=== PATIENT | male | born 1965 | race Caucasian/White ===

== ENCOUNTER 2017-12-15 17:26 | Emergency (ER) | payer MEDICAID ==
[~2017-12-15] VITALS: Ht 172.7 cm; Wt 70.5 kg
[2017-12-15 17:40] VITALS: Ht 172.7 cm; Wt 70.5 kg
[2017-12-15 18:28] LABS: BASOPHILS 0.2 % (0-2); EOSINOPHILS 1.4 % (0-7); HEMATOCRIT 40.9 % (42.0-54.0); IMMATURE GRANULOCYTES 0.1 % (0-5); MCH 33.3 pg (26.0-34.0); MCHC 36.7 g/dL (31.0-37.0); MCV 90.7 fL (80.0-100.0); MEAN PLATELET VOLUME 10.8 fL (7.4-10.4); MONOCYTES 6.6 % (2-11); NEUTROPHILS 60.7 % (40-80); PLATELET COUNT 169 10x3/uL (130-400); RBC 4.51 10x6/uL (4.20-6.10); RDW 14.2 % (11.5-14.5); WBC 8.5 10x3/uL (4.8-10.8)
[2017-12-15 18:38] LABS: APTT 32.2 SECONDS (22.8-39.4); INR 1.03 (0.85-1.17); PROTIME 13.1 SECONDS (11.6-15.0)
[2017-12-15 18:39] LABS: D-DIMER-QUANTITATIVE 0.38 ug/mLFEU (0.20-0.54)
[2017-12-15 18:39] LABS: APPEARANCE CLEAR (CLEAR); BILIRUBIN NEGATIVE (NEGATIVE); COLOR YELLOW (YELLOW); GLUCOSE NEGATIVE (NEGATIVE); KETONE NEGATIVE (NEGATIVE); NITRITE NEGATIVE (NEGATIVE); PROTEIN NEGATIVE (NEGATIVE); UROBILINOGEN NORMAL (NORMAL)
[2017-12-15 18:45] LABS: ALBUMIN 3.8 g/dL (3.4-5.0); ALKALINE PHOSPHATASE 78 U/L (46-116); ALT (SGPT) 24 U/L (10-68); BILIRUBIN - TOTAL 0.42 mg/dL (0.2-1.3); CALC OSMOLALITY 273 mosm/kg (275-300); CALCIUM 8.7 mg/dL (8.5-10.1); CARBON DIOXIDE 28.8 mmol/L (21.0-32.0); CHLORIDE - SERUM 101 mmol/L (98-107); CREATININE - SERUM 1.1 mg/dL (0.6-1.3); GLUCOSE 107 mg/dL (74-106); POTASSIUM - SERUM 3.4 mmol/L (3.5-5.1); PROTEIN - SERUM 7.2 g/dL (6.4-8.2); SODIUM 138 mmol/L (136-145); UREA NITROGEN 6 mg/dL (7-18); eGFR NON AFRICAN AMERICAN 74 mL/min (90-120)
[2017-12-15 18:56] LABS: CKMB 4.3 U/L (0.0-3.6); CREATINE KINASE 335 UL (21-232); MAGNESIUM - SERUM 1.7 mg/dL (1.8-2.4)
[2017-12-15 19:18] LABS: TROPONIN-I < 0.017 ng/mL (0.000-0.060)
[2017-12-15 21:37] LABS: CKMB 3.8 U/L (0.0-3.6); CREATINE KINASE 305 UL (21-232)
[2017-12-15 21:46] LABS: TROPONIN-I < 0.017 ng/mL (0.000-0.060)
[2017-12-15] MEDS ORDERED: MEDROL DOSE PACK4 MG PO (22:08)
[2017-12-15] MEDS ORDERED: EC-NAPROSYN500 MG PO (22:08)
[2017-12-15 22:22] VITALS: BP 170/91
== END 2017-12-15 22:26 | disposition home or self-care (01) ==
LOC: D.ER 17:26
PROVIDERS: Family Medicine
DX: F41.9 Anxiety disorder, unspecified (principal); M19.90 Unspecified osteoarthritis, unspecified site; R07.9 Chest pain, unspecified; Z86.73 Personal history of transient ischemic attack (TIA), and cerebral infarction without residual deficits; I10 Essential (primary) hypertension; K21.9 Gastro-esophageal reflux disease without esophagitis; F17.200 Nicotine dependence, unspecified, uncomplicated

== ENCOUNTER 2018-01-07 08:12 | Emergency (ER) | payer MEDICAID ==
[~2018-01-07] VITALS: Ht 172.7 cm; Wt 59.1 kg
[~2018-01-07 08:12] MED LIST: EC-NAPROSYN500 MG PO; MEDROL DOSE PACK4 MG PO
[2018-01-07 08:29] VITALS: BP 140/85; Ht 172.7 cm; Wt 59.1 kg
[2018-01-07] MEDS ORDERED: FLAGYL500 MG PO (08:34)
[2018-01-07] MEDS ORDERED: OMEPRAZOLE20 M1 PO (08:35)
[2018-01-07] MEDS ORDERED: SEROQUEL50 MG PO (08:35)
[2018-01-07] MEDS ORDERED: METOPROLOL TART25 MG PO (08:36)
[2018-01-07] MEDS ORDERED: CELEXA20 MG PO (08:36)
[2018-01-07] MEDS ORDERED: HYDROCHLOROTHIA25 MG PO (08:37)
[2018-01-07] MEDS ORDERED: VENTOLIN HFA18 GM INH (08:37)
[2018-01-07 08:56] LABS: HEMATOCRIT 35.6 % (42.0-54.0); HEMOGLOBIN 12.8 g/dL (13.5-17.5); MCH 32.5 pg (26.0-34.0); MCV 90.4 fL (80.0-100.0); MEAN PLATELET VOLUME 10.1 fL (7.4-10.4); PLATELET COUNT 426 10x3/uL (130-400); RBC 3.94 10x6/uL (4.20-6.10); RDW 14.9 % (11.5-14.5); WBC 23.8 10x3/uL (4.8-10.8)
[2018-01-07 09:08] LABS: ALBUMIN 3.1 g/dL (3.4-5.0); ANION GAP 14.5 mmol/L (8-16); BILIRUBIN - TOTAL 0.63 mg/dL (0.2-1.3); CALCIUM 8.7 mg/dL (8.5-10.1); CARBON DIOXIDE 27.2 mmol/L (21.0-32.0); CREATININE - SERUM 1.2 mg/dL (0.6-1.3); POTASSIUM - SERUM 3.7 mmol/L (3.5-5.1)
[2018-01-07 09:23] LABS: LYMPHOCYTES 13 % (15-50); MONOCYTES 2 % (2-11); NEUTROPHILS 79 % (40-80)
[2018-01-07 09:24] LABS: PLATELET ESTIMATE INCREASED
== END 2018-01-07 14:44 | disposition left against medical advice (07) ==
LOC: D.ER 08:12 → D.EDHOLD 14:20 → D.ER 14:41 → D.EDHOLD 14:41 → D.ER 14:44
PROVIDERS: Family Medicine
DX: K92.2 Gastrointestinal hemorrhage, unspecified (principal); E87.1 Hypo-osmolality and hyponatremia; I10 Essential (primary) hypertension; J44.9 Chronic obstructive pulmonary disease, unspecified; F41.8 Other specified anxiety disorders; F12.90 Cannabis use, unspecified, uncomplicated; F17.210 Nicotine dependence, cigarettes, uncomplicated

== ENCOUNTER 2018-01-07 16:09 | Emergency (ER) | payer MEDICAID ==
[~2018-01-07] VITALS: Ht 172.7 cm; Wt 59.1 kg
[~2018-01-07 16:09] MED LIST changes: +CELEXA20 MG PO; +FLAGYL500 MG PO; +HYDROCHLOROTHIA25 MG PO; +METOPROLOL TART25 MG PO; +OMEPRAZOLE20 M1 PO; +SEROQUEL50 MG PO; +VENTOLIN HFA18 GM INH
[2018-01-07 16:49] VITALS: BP 127/73; Ht 172.7 cm; Wt 59.1 kg
== END 2018-01-07 19:17 | disposition left against medical advice (07) ==
LOC: D.ER 16:09 → D.EDHOLD 18:57 → D.ER 18:57 → D.EDHOLD 19:17
DX: K92.2 Gastrointestinal hemorrhage, unspecified (principal); E87.1 Hypo-osmolality and hyponatremia; I10 Essential (primary) hypertension; J44.9 Chronic obstructive pulmonary disease, unspecified; F41.8 Other specified anxiety disorders; F12.90 Cannabis use, unspecified, uncomplicated; F17.210 Nicotine dependence, cigarettes, uncomplicated